=== PATIENT | female | born 1995 | race Caucasian/White ===

== ENCOUNTER 2019-09-15 10:44 | Inpatient (IN) ==
[~2019-09-15 10:44] MED LIST: CeFAZolin 2,000 MG/50 ML BAG IVPB ONE; Famotidine 20 MG/2 ML VIAL IVP ONE; Metoclopramide 10 MG/2 ML VIAL IVP ONE; Oxytocin 20 units/ LR 1000 mL 20 UNIT/1,000 ML BAG IVC ONE; Ringers Solution, Lactated 1,000 ML IVC ONE; Ringers Solution, Lactated 1,000 ML IVC SCH; Ringers Solution, Lactated 2,000 ML ONE
[2019-09-15] MEDS ORDERED: Oxytocin 20 units/ LR 1000 mL 20 UNIT/1,000 ML BAG IVC SCH ×2 (10:45→15:03)
[2019-09-15] MEDS ORDERED: *HR* HYDROmorphone (PF) 1 MG/ML SYRINGE IVP PRN (10:57)
[2019-09-15] MEDS ORDERED: Ondansetron 4 MG/2 ML VIAL IVP ONE (10:57)
[2019-09-15] MEDS ORDERED: *HR* Promethazine 25 MG/ML VIAL IVP PRN (10:57)
[2019-09-15] MEDS ORDERED: *HR* OxyCODONE Immed Rel 5 MG TABLET PO PRN ×2 (10:57→15:28)
[2019-09-15] MEDS ORDERED: Acetaminophen IV 1,000 MG/100 ML INFUS..BTL IVPB ONE (10:58)
[2019-09-15 11:15] LABS: Basophils % 0.3 %; Eosinophils # 0.1 K/mcL (0.0-0.6); Eosinophils % 0.6 %; Hematocrit 32.4 % (35.3-44.9); Hemoglobin 10.9 g/dL (11.5-15.4); Immature Granulocytes % 0.5 % (0-4); Lymphocytes # 2.6 K/mcL (0.6-4.6); Lymphocytes % 23.7 %; Mean Corpuscular HGB Conc 33.6 g/dL (31.6-35.5); Mean Corpuscular Hemoglobin 29.3 pg (28.0-33.3); Mean Corpuscular Volume 87.1 fL (83.0-100.0); Mean Platelet Volume 10.4 fL (9.4-12.4); Monocytes # 0.9 K/mcL (0.0-1.3); Monocytes % 8.7 %; Neutrophils # 7.1 K/mcL (1.6-8.9); Platelet Count 230 K/mcL (140-400); Red Blood Count 3.72 M/mcL (3.82-4.97); Red Cell Distribution Width 14.4 % (11.5-14.5); Segmented Neutrophils % 66.2 %; White Blood Count 10.8 K/mcL (4.3-11.1)
[2019-09-15] MEDS ORDERED: *HR* Oxytocin 10 UNIT/ML VIAL IM ONE ×2 (11:16→11:17)
[2019-09-15] MEDS ORDERED: Ringers Solution, Lactated 1,000 ML ONE (11:16)
[2019-09-15] MEDS ORDERED: *HR* Propofol 200 MG/20 ML VIAL IVP ONE (11:17)
[2019-09-15] MEDS ORDERED: Ketorolac 30 MG/ML VIAL ONE (11:17)
[2019-09-15 11:20] LABS: Amphetamine Screen,Urine Negative ng/mL (Cutoff=1000); Barbiturate Screen,Urine Negative ng/mL (Cutoff=200); Benzodiazepines Screen,Urine Negative ng/mL (Cutoff=200); Cannabinoid Screen,Urine Negative ng/mL (Cutoff = 50); Cocaine Screen,Urine Negative ng/mL (Cutoff= 300); Opiate Screen,Urine Negative ng/mL (Cutoff=300); Phencyclidine Screen,Urine Negative ng/mL (Cutoff=25)
[2019-09-15] MEDS ORDERED: Naloxone 0.4 MG/ML INJ IVP PRN (12:14)
[2019-09-15] MEDS ORDERED: Morphine PCA 30 MG/ 30 ML 30 ML PCA.VIAL IVC PRN (12:14)
[2019-09-15] MEDS ORDERED: *HR* OxyCODONE/APAP 5/325 TABLET PO PRN (15:03)
[2019-09-15] MEDS ORDERED: Metoclopramide 10 MG/2 ML VIAL IVP PRN (15:03)
[2019-09-15] MEDS ORDERED: Ondansetron 4 MG/2 ML VIAL IVP PRN (15:03)
[2019-09-15] MEDS ORDERED: Simethicone 80 MG TAB.CHEW PO PRN (15:03)
[2019-09-15] MEDS ORDERED: Ringers Solution, Lactated 1,000 ML IVC SCH (15:03)
[2019-09-15] MEDS ORDERED: Sennosides 8.6 MG TABLET PO PRN (15:03)
[2019-09-15] MEDS ORDERED: Rho Immune Globulin 1,500 UNIT SYRINGE IM ONE (15:03)
[2019-09-15] MEDS: metroNIDAZOLE 500 MG TABLET PO SCH ×2 (17:08→21:31)
[2019-09-15] MEDS: cephALEXin 500 MG CAPSULE PO SCH ×2 (17:08→21:31)
[2019-09-15] MEDS: Acetaminophen 325 MG TABLET PO PRN (17:08)
[2019-09-15] MEDS: Ibuprofen 600 MG TABLET PO PRN (18:59)
[2019-09-16] MEDS: Ibuprofen 600 MG TABLET PO PRN ×2 (01:41→08:50)
[2019-09-16] MEDS: Acetaminophen 325 MG TABLET PO PRN (04:40)
[2019-09-16 06:49] LABS: Basophils % 0.3 %; Eosinophils # 0.1 K/mcL (0.0-0.6); Eosinophils % 0.5 %; Hematocrit 28.6 % (35.3-44.9); Hemoglobin 9.5 g/dL (11.5-15.4); Immature Granulocytes % 0.5 % (0-4); Lymphocytes # 2.5 K/mcL (0.6-4.6); Lymphocytes % 19.1 %; Mean Corpuscular HGB Conc 33.2 g/dL (31.6-35.5); Mean Corpuscular Volume 87.2 fL (83.0-100.0); Monocytes # 1.1 K/mcL (0.0-1.3); Monocytes % 8.6 %; Neutrophils # 9.1 K/mcL (1.6-8.9); Platelet Count 227 K/mcL (140-400); Red Blood Count 3.28 M/mcL (3.82-4.97); Red Cell Distribution Width 14.5 % (11.5-14.5); White Blood Count 12.8 K/mcL (4.3-11.1)
[2019-09-16 07:57] VITALS: BP 120/70
[2019-09-16] MEDS: metroNIDAZOLE 500 MG TABLET PO SCH (08:53)
[2019-09-16] MEDS: cephALEXin 500 MG CAPSULE PO SCH (08:54)
[2019-09-16] MEDS ORDERED: Prenatal Vit/FA 1 EACH TABLET PO SCH (09:00)
== END 2019-09-16 13:29 | disposition home or self-care (01) | DRG 540 ==
LOC: 1NENULAB → 1NENUOBS 14:19
PROVIDERS: ADMIT Obstetrics & Gynecology; ATTEND Obstetrics & Gynecology